=== PATIENT | male | born 1970 | race Caucasian/White ===

== ENCOUNTER 2022-03-18 12:58 | Emergency (ER) | payer OTHER, SELFPAY ==
[2022-03-18 13:10] VITALS: BP 140/85; PULSE 79; RESP 18; TEMP 37.2; O2SAT 99
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
[2022-03-18] MEDS: Acetaminophen 500 MG TAB 1000 MG PO (13:57)
== END 2022-03-18 15:33 | disposition home or self-care (01) ==
PROVIDERS: Emergency Provider Emergency Medicine
DX: S52.592A Other fractures of lower end of left radius, initial encounter for closed fracture (principal); S40.012A Contusion of left shoulder, initial encounter; S00.81XA Abrasion of other part of head, initial encounter; V29.9XXA Motorcycle rider (driver) (passenger) injured in unspecified traffic accident, initial encounter; Y93.39 Activity, other involving climbing, rappelling and jumping off
CPT/HCPCS: 99284; 73030; 73090; 73110; 99282